=== PATIENT | male | born 1995 | race Caucasian/White ===

== ENCOUNTER 2017-08-04 23:26 | Emergency (ER) | payer MEDICAID, SELFPAY ==
[2017-08-04 23:26] VITALS: BP 141/89; PULSE 108; RESP 24; TEMP 37; O2SAT 96; BMI 32.5
[2017-08-04 23:43] LABS: Bacteria 0 SEEN /hpf (None Seen); Red Blood Cells-Urine 0 SEEN /hpf (0-5); Squamous Epithelial Cells - UA 0 SEEN /hpf (0-5); White Blood Cells 0 SEEN /hpf (0-5)
[2017-08-04 23:44] LABS: Color, Urine Amber (Yellow); Glucose, Dipstick Normal (Normal); Ketone-Dipstick 15 mg/dl (Negative); Leukocyte Esterase-Dipstick Negative /ul (Negative); Nitrite-Dipstick Positive (Negative); Occult Blood-Urine Negative /ul (Negative); Protein-Dipstick 15 mg/dl (Negative); Urine Clarity Sl. Cloudy (Clear); Urine Urobilinogen 8 mg/dl (Normal)
[2017-08-04 23:45] LABS: Urine Bilirubin Dipstick 6 mg/dL (Negative)
[2017-08-04 23:54] LABS: Mucous, Urine 3+ /hpf (<or=2+)
--- NOTE | 2017-08-05 00:36 | ED.DCSUM_ITS ---
- ER Visit Summary Date of Service: 08/05/17 Chief Complaint: Dysuria and hematuria History of Present Illness: The patient is a 21 M who reports getting frequent UTIs. Patient believes he has Crohn's disease which leads to UTIs. Patient states he normally just drinks a lot of cranberry juice. He developed some dysuria hematuria 4 days ago started drinking cranberry juice. Symptoms initially improved but then returned and worsened. He describes frequency and urgency as well as dysuria. He has not noted a fever. He has mild lower back pain. Patient denies penile discharge or possibility of STD. Physical Examination: Vital signs are unremarkable. Patient sitting upright in bed no acute distress. He is nontoxic appearing. Head neck examination is normal. Heart is regular rate and rhythm. Lung sounds are clear. Abdomen is soft with mild suprapubic tenderness. No guarding or rebound. Back examination was no CVA tenderness. Test Results: Urinalysis is positive for nitrites. 0 bacteria is noted. Emergency Department Course and Treatment: Patient has been taking over-the- counter Azo type medication. This may have skewed his urinalysis results. With patient having positive nitrites he will be treated with a course of Cipro. Urine culture will be sent. He requested referral for GI follow-up to determine whether or not he has Crohn's disease. He is given Dr. Montano's information. Treatment Plan: [] Disposition: Discharge Impression: Cystitis This note was generated with [employer] dictation software. It may contain incorrect words, spelling, and punctuation that were not noted in review of the chart prior to signing ED Disposition - Plan for ED Patient: Disposition: Home or Assisted Living Chief Complaint: Complaint Instructions: ED UTI Cystitis Male Prescriptions: Ciprofloxacin [Cipro] 500 mg PO BID #14 tablet Referrals: Michael Chris [Primary Care Provider] - Sarthak Montano MD [STAFF PHYSICIAN] -
[2017-08-05] MEDS: Ciprofloxacin 500 MG Tablet PO (01:15)
--- NOTE | 2017-08-05 23:27 | ED.DEP ---
ED Disposition - Plan for ED Patient: Disposition: Home or Assisted Living Chief Complaint: Complaint Instructions: ED UTI Cystitis Male Prescriptions: Ciprofloxacin [Cipro] 500 mg PO BID #14 tablet Ciprofloxacin [Cipro] 500 mg PO BID #14 tab Referrals: Michael Chris [Primary Care Provider] - Sarthak Montano MD [STAFF PHYSICIAN] - Additional Instructions: submitted electronically this evening as it was not received yesterday
== END 2017-08-05 01:18 | disposition home or self-care (01) ==
LOC: ED 08-05 00:46
PROVIDERS: Emergency Provider Emergency Medicine; Family Provider Family Medicine; PCP Family Medicine
DX: N30.91 Cystitis, unspecified with hematuria (principal); Z87.440 Personal history of urinary (tract) infections
CPT/HCPCS: 81001; 87086; 99283

== ENCOUNTER → 2019-03-26 07:44 | Outpatient (CLI) | payer MEDICAID, SELFPAY ==
--- NOTE | 2019-03-26 10:16 | PFTCOMP_ITS ---
COMPLETE PULMONARY FUNCTION TEST INTERPRETATION Brief HPI: Patient is a 23 year old male, currently under the care of Rukhsana Robb, who presents to [facility] for complete pulmonary function tests secondary to diagnosis of rule out asthma. Respiratory therapist reports good effort and reproducible results. Interpretation: Forced expiration spirometry shows no large airways obstructive ventilatory defect with an FEV1 of 86% predicted. There is no significant bronchodilator response by strict ATS criteria. Spirograms are of good quality and plateau normally. The respiratory flow volume loop shows flattening of the expiratory limb suggestive of a possible intrathoracic variable airway obstruction. Lung volumes by body plethysmography show a decreased total lung capacity at 5.14 L, 67% predicted. All other lung volumes are reduced symmetrically. Diffusion capacity by carbon monoxide is decreased at 70% predicted. The airway resistance is normal. No previous pulmonary function tests were available for review. Impression: Moderate restrictive ventilatory defect with a symmetric reduction diffusing capacity and findings suggestive of a possible variable intrathoracic airway obstruction. Consider CT scan of the chest with contrast if not completed previously for evaluation of mediastinal masses.
== END ==
PROVIDERS: Referring Provider Nurse Practitioner Family; Visit Provider Nurse Practitioner Family
DX: R05 Cough (principal)
CPT/HCPCS: 94060; 94726; 94729

== ENCOUNTER → 2019-04-11 16:03 | Outpatient (CLI) | payer MEDICAID, SELFPAY ==
--- NOTE | 2019-04-11 16:15 | CT_ITS ---
STUDY: CT CHEST WITH CONTRAST REASON FOR EXAM: Male, 23 years old. Shortness of breath RADIATION DOSAGE (If Supplied By Facility): DLP = ( 689.34 ) mGycm TECHNIQUE: Transaxial imaging was performed following intravenous administration of 100 mL ml of Isovue-300 contrast material. Coronal and sagittal reformatted images were created. Individualized dose optimization techniques were used for this CT. COMPARISON: None FINDINGS: There are no pulmonary infiltrates or pleural effusions. There are no pulmonary nodules or masses. There is no pneumothorax. The heart and pericardium are within normal limits. There is no thoracic lymphadenopathy. There is no evidence of thoracic aortic aneurysm. Images through the upper abdomen demonstrate no significant abnormality. There are no destructive osseous lesions. CT/Chest WITH Contrast IMPRESSION: Unremarkable contrast-enhanced CT of the chest. Electronically Signed: Sukhjinder Blas, at 20:10 EST Tel , Service support ,
== END ==
DX: R06.02 Shortness of breath (principal); R53.83 Other fatigue; R94.2 Abnormal results of pulmonary function studies
CPT/HCPCS: 71260; Q9967

== ENCOUNTER → 2019-05-20 10:02 | Outpatient (CLI) | payer MEDICAID, SELFPAY ==
--- NOTE | 2019-05-20 10:06 | ECHOD_ITS ---
Reason For Study: ABN PFT Procedure This was a 2D Doppler, Color Flow transthoracic echocardiogram. Exam performed in department. Left Ventricle Normal LV size. Left ventricular systolic function is normal. The estimated ejection fraction is 60 %. Normal diastology for age. No regional wall motion abnormalities noted. Right Ventricle Normal RV size. Normal systolic function. Atria Normal left atrium. Normal right atrium. Mitral Valve Normal mitral valve. Tricuspid Valve Normal tricuspid valve. Mild tricuspid valve insufficiency. Aortic Valve Normal aortic valve. Trisinus/trileaflet aortic valve. Pulmonic Valve Normal pulmonic valve. Great Vessels Normal aortic root. The pulmonary artery is normal size. Normal inferior vena cava. Pericardium/Pleural No pericardial effusion. MMode/2D Measurements & Calculations LVIDd: 5.5 cm IVSd: 1.0 cm Ao root diam: 3.1 cm LVIDs: 3.3 cm LVPWd: 0.95 cm RVDd: 3.5 cm FS: 40.0 % LAV(MOD-bp): 47.3 ml LA A4 area: 17.2 cm2 LA dimension(2D): 4.0 cm LAV(MOD-bp) Indexed: 20.0 ml/m2 LAV(MOD-sp2): 46.2 ml LAV(MOD-sp4): 48.0 ml RA A4 area: 12.9 cm2 Time Measurements MV dec time: 0.19 sec Doppler Measurements & Calculations MV E max suraj: 64.5 cm/sec Lat Peak E' Suraj: 13.2 cm/sec Med Peak E' Suraj: 8.8 cm/sec MV A max suraj: 47.9 cm/sec E/E' lat: 4.9 E/E' med: 7.3 MV E/A: 1.3 Ao V2 max: 110.6 cm/sec LV V1 max: 103.4 cm/sec PA V2 max: 119.6 cm/sec Ao max P.9 mmHg LV V1 max P.3 mmHg TR max suraj: 223.2 cm/sec TR max P.9 mmHg Interpretation Summary Normal LV size. Left ventricular systolic function is normal. The estimated ejection fraction is 60 %. Normal diastology for age. Ordering Physician: Josefina Dey Referring Physician: Josefina Dey Performed By: Scarlett Allan, CARLOS, RVT
== END ==
DX: R94.2 Abnormal results of pulmonary function studies (principal)
CPT/HCPCS: 93306

== ENCOUNTER 2019-05-27 20:43 | Emergency (ER) | payer MEDICAID, SELFPAY ==
[2019-05-27 20:44] VITALS: BP 131/107; PULSE 110; RESP 18; TEMP 36.6; O2SAT 97; BMI 34.2
[2019-05-27 21:16] VITALS: O2SAT 100
--- NOTE | 2019-05-27 21:38 | EKG12_ITS ---
Test Reason : DYSRHYTHMIA Blood Pressure : / mmHG Vent. Rate : 095 BPM Atrial Rate : 095 BPM P-R Int : 150 ms QRS Dur : 102 ms QT Int : 344 ms P-R-T Axes : 045 011 037 degrees QTc Int : 432 ms Normal sinus rhythm Normal ECG Confirmed by DON DAS [id number]), commissioning editor BRENNON AN ([id number]) on 05/31/2019 9:25:10 AM Referred By: Jimena Robb Confirmed By:DON DAS
--- NOTE | 2019-05-27 21:40 | RAD_ITS ---
STUDY: X-RAY CHEST REASON FOR EXAM: Male, 23 years old. SOB TECHNIQUE: Single frontal view of the chest. COMPARISON: None. FINDINGS: The lungs are clear and expanded. There is no demonstrated pleural abnormality. Normal size heart. Normal mediastinum and kasia. Normal visualized pulmonary arteries. Normal visualized aortic arch and descending thoracic aorta. Normal visualized thoracic spine. Normal visualized ribs, clavicles, and shoulders. There is no demonstrated abnormality of the visualized soft tissue structures of the upper abdomen. RAD/Chest 1 View (Portable) IMPRESSION: Normal x-ray examination of the chest. Electronically Signed: Vivek Brannon MD at 22:07 EST Tel , Service support ,
--- NOTE | 2019-05-27 21:46 | ED.RN ---
NO OLD EKG
[2019-05-27] MEDS: 0.9% Normal Saline 1,000 ML 999 ML IV (21:51)
[2019-05-27 21:53] LABS: Absolute Lymphocyte Count 1.78 X10^3/uL (0.83-4.51); Absolute Neutrophil Count 6.4 X10^3/uL (2.0-7.7); Basophil# 0.02 X10^3/uL; Basophil% 0.2 % (0-1); Eosinophil# 0.09 X10^3/uL; Hematocrit 46.7 % (40-54); Hemoglobin 16.5 g/dL (13.0-16.5); Lymphocyte # 1.78 X10^3/ul (4.0); Lymphocyte % 20.4 % (19-41); Mean Corp Hgb Conc 35.3 g/dL (32-36); Mean Corpuscular Hgb 30.1 pg (27.0-32.0); Mean Corpuscular Volume 85.1 fL (80-94); Monocyte# 0.46 X10^3/uL; Monocyte% 5.3 % (0-10); NRBC Flagged by Analyzer 0 % (0-5); Neutrophil # 6.35 X10^3/uL (2.7-7.7); Neutrophil % 72.9 % (47-70); Platelet Count 228 K/mm3 (150-450); RBC Distribution Width CV 12.2 % (11.6-14.6); RBC Distribution Width SD 37.3 fl (35.1-43.9); Red Blood Count 5.49 M/mm3 (4.6-6.2); White Blood Count 8.7 K/mm3 (4.4-11.0)
[2019-05-27 22:19] LABS: Anion Gap 9 (5-15); BUN 10 mg/dL (7-18); BUN/Creat Ratio 8.2 RATIO (10-20); Calcium,Total 9.6 mg/dL (8.5-10.1); Chloride 108 mmol/L (98-107); Creatinine, Serum 1.22 mg/dL (0.70-1.30); EST Glomerular Filtration Rate 77 mL/min (>60); Est Glom Filt Rate - Afr Amer 93 mL/min (>60); Estimated Creatinine Clearance 102.48 ml/min; Glucose 85 mg/dL (74-106); Potassium 3.9 mmol/L (3.5-5.1); Sodium Level 140 mmol/L (136-145)
--- NOTE | 2019-05-27 22:36 | ED.DCSUM_ITS ---
- ER Visit Summary Date of Service: 05/27/19 Chief Complaint: Shortness of breath History of Present Illness: The patient is a 23 M presenting with shortness of breath x3 months. Patient states that he has been seen multiple times by his primary care physician. He is scheduled to see pulmonology this week. He states tonight he felt increasing shortness of breath along with dizziness. He had no syncope. He has chest pain which has also been ongoing for the past 3 months. He has been using albuterol as needed. He is a previous smoker. No other complaints. Physical Examination: Vitals are stable. Patient is afebrile. Alert no acute distress. HEENT exam is unremarkable. Neck is supple. Lungs are clear and equal bilaterally. Heart is regular rate and rhythm. Abdomen is soft nontender nondistended. Extremities are unremarkable. Skin is warm and dry. No focal neurologic deficit. Remainder of exam is unremarkable. Emergency Department Course and Treatment: EKG is sinus rate of 95 with no acute ischemic changes. Chest x-ray shows no acute process. CBC, chemistries unremarkable. Troponin is negative. D-dimer negative. On reevaluation, patient is resting comfortably. He is given albuterol with spacer. Advised to follow-up with pulmonology as scheduled. Advised return to ED for worsening complaints. Disposition: Discharge home Impression: Dyspnea This note was generated with [employer] dictation software. It may contain incorrect words, spelling, and punctuation that were not noted in review of the chart prior to signing ED Disposition - Plan for ED Patient: Referrals: Jimena Robb NP-C [Primary Care Provider] -
[2019-05-27 22:57] LABS: D-Dimer Quantitative (DVT/PE) <= 0.27 FEU/ug/m (0.27-0.49)
--- NOTE | 2019-05-27 23:17 | DCINST.ED_ITS ---
ED Disposition - Plan for ED Patient: Instructions: ED Dyspnea Referrals: Jimena Robb, SHINGLE GRADER-C [Primary Care Provider] -
--- NOTE | 2019-05-27 23:17 | ED.DEP ---
ED Disposition - Plan for ED Patient: Instructions: ED Dyspnea Referrals: Jimena Robb, QUALITY NURSE-C [Primary Care Provider] -
[2019-05-27 23:30] VITALS: BP 134/79; PULSE 87; RESP 25; O2SAT 95
[2019-05-27 23:32] VITALS: BP 134/79; PULSE 95; RESP 25; O2SAT 95
== END 2019-05-27 23:37 | disposition home or self-care (01) ==
PROVIDERS: Emergency Provider Emergency Medicine; PCP Nurse Practitioner Family; Referring Provider Nurse Practitioner Family
DX: R06.00 Dyspnea, unspecified (principal); Z87.891 Personal history of nicotine dependence
CPT/HCPCS: 36415; 71045; 80048; 84484; 85025; 85379; 93005; 96360; 99285; J7030; A4216

== ENCOUNTER → 2019-06-14 | Outpatient (CLI) | payer MEDICAID, SELFPAY ==
[2019-05-29 10:41] VITALS: BMI 35.4
[2019-06-14 09:00] VITALS: PULSE 106; PULSE 107; PULSE 109; PULSE 111; PULSE 113; PULSE 93; PULSE 96; O2SAT 95; O2SAT 96; O2SAT 98
--- NOTE | 2019-06-14 12:50 | PCM.PSN.6M ---
PSN 6 Minute Walk Test - 6 Minute Walk Test 6 Minute Walk Test: 6 Minute Walk Test PSN:6-Minute Walk Test Start: 06/14/19 09:35 Freq: Status: Active Protocol: RESP.6MINW Document 06/14/19 09:00 HJ (Rec: 06/14/19 09:43 HJ [id number]) 6 Minute Walk Test Date Performed 06/14/19 Time Performed 09:00 Height 6 ft Weight: 117.934 kg Weight in Pounds 260.[address]: Sadi Plasencia FIO2 (% Oxygen) 21 Assistive device used: None Post-test Oxygen Delivery Method Room Air Pulse Ox (%) 98 Pulse Rate (60-100 beats/min) 96 Dyspnea Fredy Scale (0-10) 4 Exertion Fredy Scale (6-20) 8 6th minute Oxygen Delivery Method Room Air Pulse Ox (%) 95 Pulse Rate (60-100 beats/min) 113 H 5th minute Oxygen Delivery Method Room Air Pulse Ox (%) 96 Pulse Rate (60-100 beats/min) 111 H 4th minute Oxygen Delivery Method Room Air Pulse Ox (%) 96 Pulse Rate (60-100 beats/min) 106 H 3rd minute Oxygen Delivery Method Room Air Pulse Ox (%) 96 Pulse Rate (60-100 beats/min) 111 H 2nd minute Oxygen Delivery Method Room Air Pulse Ox (%) 95 Pulse Rate (60-100 beats/min) 109 H 1st minute Oxygen Delivery Method Room Air Pulse Ox (%) 96 Pulse Rate (60-100 beats/min) 107 H Pre-test Oxygen Delivery Method Room Air Pulse Ox (%) 98 Pulse Rate (60-100 beats/min) 93 Dyspnea Fredy Scale (0-10) 0 Exertion Fredy Scale (6-20) 6 Full Laps Walked 23 Document 06/14/19 10:42 SFENTON (Rec: 06/14/19 10:42 SFENTON [id number]) 6 Minute Walk Test Full Laps Walked 23 Partial Lap, Number of Tiles Walked 0 Total Distance Walked (ft) 1357 - Interpretation Interpretation: The patient was able to ambulate 1357 feet over the course of 6 minutes on room air with no assistive devices or breaks. The patient experienced no significant desaturation, but did have tachycardia up to 113 bpm. These findings are consistent with deconditioning. - Recommendations Recommendations: No supplemental oxygen is indicated at this time
== END | disposition home or self-care (01) ==
LOC: PSN 09:01
PROVIDERS: Referring Provider Internal Medicine Critical Care Medicine; Visit Provider Internal Medicine Critical Care Medicine
DX: R94.2 Abnormal results of pulmonary function studies (principal)
CPT/HCPCS: 94618

== ENCOUNTER → 2019-07-26 | Outpatient (CLI) | payer MEDICAID, SELFPAY ==
[2019-06-19 12:43] VITALS: BMI 36.3
== END | disposition home or self-care (01) ==
LOC: PSN 13:00
PROVIDERS: Referring Provider Internal Medicine Cardiovascular Disease; Visit Provider Internal Medicine Cardiovascular Disease
DX: R00.2 Palpitations (principal)
CPT/HCPCS: 93225; 93226

== ENCOUNTER → 2019-09-23 | Outpatient (CLI) | payer MEDICAID, SELFPAY ==
[2019-06-19 12:43] VITALS: BMI 36.3
--- NOTE | 2019-09-23 13:00 | SP.MBSS_ITS ---
PRIMARY / SECONDARY DIAGNOSIS: dysphagia (R13.10) CURRENT DIET (SOLIDS): regular textures (IDDSI: 7) CURRENT DIET (LIQUIDS): thin liquid diets (IDDSI: 0) DENTITION: natural upper / lower dentition MENTAL STATUS: intact RESPIRATORY STATUS: O2 via room air CURRENT FUNCTIONAL AMBULATION CATEGORY (FAC): 5 (ambulator- independent) REASON FOR REFERRAL: The Patient is a pleasant 23 year old male pending anticipated transition referred for a modified barium swallow (MBS) study to objectively assess the Patients oropharyngeal swallow function under fluoroscopy secondary to reported intermittent post prandial globus sensation with occasional return / emesis (~1-2x week), though this has somewhat improved with a self-adjustment in medication administration (states he doubled his Omeprazole, intends to discuss with her physician). MEDICAL HISTORY: Shortness of breath, former smoker PREVIOUS MODIFIED BARIUM SWALLOW STUDY RESULTS: None ADDITIONAL OBJECTIVE ASSESSMENT RESULTS: 06/14/2019 pulmonary exercise test revealed findings consistent with deconditioning. 03/26/2019 pulmonary functions test revealed a moderate restrictive ventilatory defect with a symmetric reduction diffusing capacity and findings suggestive of a possible variable intrathoracic airway obstruction. ASSESSMENT PARAMETERS: The Patient participated in a Modified Barium Swallow (MBS) study on 09/23/2019. This study was recorded in the lateral view and images were sent to PACs for storage. Scoring was completed through each trial using the 8- point Penetration-Aspiration Scale (PAS) and summarized via the Modified Barium Swallow Impairment Profile (MBSImP) and the Bolus Residue Scale (BRS), with severity scoring through the Dysphagia Severity Rating Scale (DSRS) and the Dysphagia Classification Scale (DCS), and recommended diet textures through the International Dysphagia Diet Standardisation Initiative (IDDSI) RESULTS OF THE EVALUATION: The Patient presents with mastication and deglutition abilities found to be grossly within normal limits (DSRS: 0) OBJECTIVE ASSESSMENT OF SWALLOW FUNCTION (QUANTITATIVE ? PER TRIAL): PENETRATION / ASPIRATION SCALE (BERGMAN): 1 = does not enter airway 2 = enters airway/above vocal folds/ejected 3 = enters airway/above vocal folds/not ejected 4 = enters airway/contacts vocal folds/ejected 5 = enters airway/contacts vocal folds/not ejected 6 = enters airway/below vocal folds/ejected 7 = enters airway/below vocal folds/not ejected despite effort 8 = enters airway/below vocal folds/no effort PENETRATION / ASPIRATION SCALE (SCORE): Thin liquid - 5 mL tsp.: 1 Thin liquids via cup (single sip): 1 Thin liquids via cup (single sip): 1 Thin liquids via cup (single sip): 1 Thin liquids via cup (sequential swallows): 1 Pudding via spoon: 1 Regular textured cookie: 1 Thin liquids via straw: 1 OBJECTIVE ASSESSMENT OF SWALLOW FUNCTION (QUANTITATIVE ? AGGREGATE): MODIFIED BARIUM SWALLOW IMPAIRMENT PROFILE (MBSImP) LABIAL SEAL: 0 (of 4) no labial escape TONGUE CONTROL: 0 (of 3) cohesive bolus BOLUS PREPARATION / MASTICATION: 0 (of 3) timely and efficient BOLUS TRANSPORT / LINGUAL MOTION: 0 (of 4) brisk tongue motion ORAL RESIDUE: 0 (of 4) complete clearance INITIATION OF PHARYNGEAL SWALLOW: 0 (of 4) posterior angle of ramus SOFT PALATE ELEVATION: 0 (of 4) no bolus between soft palate & pharyngeal wall LARYNGEAL ELEVATION: 0 (of 3) complete superior movement / approximation ANTERIOR HYOID EXCURSION: 0 (of 2) complete movement EPIGLOTTIC MOVEMENT: 0 (of 2) complete inversion LARYNGEAL VESTIBULE CLOSURE: 0 (of 2) complete closure PHARYNGEAL STRIPPING WAVE: 0 (of 2) present / complete PE SEGMENT OPENIN (of 3) complete distension / duration; no obstruction TONGUE BASE RETRACTION: 0 (of 4) no contrast PHARYNGEAL RESIDUE: 1 (of 4) trace residue ESOPHAGEAL BOLUS CLEARANCE: 0 (of 4) complete clearance; esophageal coating BOLUS RESIDUE SCALE (BRS): BRS SCORE: 1 (of 6) BRS SCORE DESCRIPTION: no residue OBJECTIVE ASSESSMENT OF SWALLOW FUNCTION (SEVERITY GRADING): DYSPHAGIA SEVERITY RATING SCALE (DSRS): DSRS CLASSIFICATION: 0 (within normal limits - 0% impairment) DSRS CLASSIFICATION CHARACTERISTICS: normal swallowing mechanism. DYSPHAGIA CLASSIFICATION SCALE (DCS): DCS CLASSIFICATION: D0 (normal) DCS CLASSIFICATION CHARACTERISTICS: without stasis or food consistency restrictions OBJECTIVE ASSESSMENT OF SWALLOW FUNCTION (QUALITATIVE): ORAL PREPARATORY PHASE: sufficient mastication rate and quality; sufficient anterior oral containment during oral manipulation; preserved management of breathing / bolus formation without disrupted E ? S ? E pattern ORAL TRANSITIONAL PHASE: no presence of transitional incompetence with sufficient bolus transportation; no lingual discoordination (no tremor / undulations); no bolus consolidation impairments with sufficient oral clearance; sufficient oral containment across textures; no presence of premature posterior bolus loss PHARYNGEAL PHASE: no signs of pharyngeal dyssynchrony; appropriate hyolaryngeal excursion and laryngeal vestibule closure / pressure; appropriate pharyngeal motility; no signs of velopharyngeal impairments. . ESOPHAGEAL PHASE: initially discussed possible (albeit low) esophageal based abnormalities, though no obvious esophageal phase abnormalities observed upon review; however further investigation may be warranted if symptomology persists without a causal factor identified. INTERVENTION RECOMMENDATIONS AND CONSIDERATIONS: The Patient did discuss some of her pulmonology based issues with the clinician, and at one point described occasional issues with inspiration vs. exhalation, along with anxiety and depression struggles; if symptom association warrants, she may benefit from further workup regarding paradoxical vocal fold dysfunction, though there is little to suggest this based on our conversations alone. INTERVENTION RECOMMENDATIONS AND CONSIDERATIONS: No further speech-language pathology based intervention warranted targeting dysphagia. POST ASSESSMENT EDUCATION: The results and recommendations were discussed with the Patient immediately following MBS completion, with the Patient verbalizing understanding and agreement with all recommendations and education provided. DIET TEXTURE RECOMMENDATIONS: Will recommend a regular textured (IDDSI: 7), thin liquid diet (IDDSI: 0) diet RECOMMENDED COMPENSATORY STRATEGIES: Seated upright at 90 degrees during PO intake, remain upright for 30-60 minutes post meal (GERD precaution). IMAGE COUNT: [id number] Wilfredo Boston M.A., NATHANIEL-DENTOFACIAL ORTHOPEDICS DENTIST, CBIS MBSImP Certified, LSVT Certified [facility] Speech-Language Pathology Department Email: [email or web address]
== END | disposition home or self-care (01) ==
LOC: RAD 12:56
DX: R13.10 Dysphagia, unspecified (principal)
CPT/HCPCS: 74230; 92611

== ENCOUNTER 2019-11-15 13:00 | Outpatient (RCR) | payer MEDICAID, SELFPAY ==
[2019-10-10 14:06] VITALS: BMI 35.4
--- NOTE | 2019-10-18 13:10 | SOAP_ITS ---
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 She reports persisting issues with breathing over the past few years that have gradually increased, occurring intermittently throughout the week, with episodes lasting anywhere from 2-5 minutes up to a few hours, typically recurring throughout the day when present. She reports biphasic breathing difficulties, though does note that it is particularly difficult breathing in during episodes. She reports persisting globus sensation with substernal tightness, in addition to intermittent nausea that occurs with and without breathing symptomology. She also reports frequently waking with a noticeable hoarse voice, with her vocal quality returning to normal after a few hours, with no changes in subjective reflux significance after recent medication adjustments. She reports a trigger effect with exercises / physical exertion, to the point that she has been out of work over the past few months after an incident that lead to her nearly passing out (she unloads delivery trucks in warehouse) do the significance of her breathing issues. She further reports some trigger effects associated with strong odors in addition to stress. She reports a protracted struggle with anxiety in addition to depression, though reports that she has been managing this well through the use of marijuana (~2-3x per week). She does describe herself as rather competitive / type A personality. She has not noticed any effect from environmental factors (weather / temperature), though does report some possible environmental allergies (uncertain). She has yet to proceed with the transition process, with no associated effect from treatment / intervention possible. MEDICAL HISTORY: Bipolar disorder, shortness of breath, anxiety and depression, gastroesophageal reflux disease, former smoker; possible Crohn?s disease. MEDICATIONS: Cetirizine 10mg Ondansetron HCl 4 mg Famotidine 20 mg Nicotine 21mg/24 hour transdermal Omeprazole 20mg Montelukast 10 mg Albuterol sulfate HFA 90 mcg Fluticasone propionate 50 mcg ADDITIONAL OBJECTIVE ASSESSMENT RESULTS: 06/14/2019 pulmonary exercise test revealed no significant desaturation; tachycardia up to 113 bpm; findings are consistent with deconditioning. 03/26/2019 pulmonary functions test revealed moderate restrictive ventilatory defect with a symmetric reduction diffusing capacity and findings suggestive of a possible variable intrathoracic airway obstruction. 09/23/2019 MBS revealed mastication and deglutition abilities found to be grossly within normal limits (DSRS: 0) RESULTS OF THE EVALUATION: The patient presents with signs and symptoms similar in nature to paradoxical vocal cord dysfunction (J38.3). FUNCTIONAL STATUS ASSESSMENT RESULTS: PATIENT HEALTH QUESTIONNAIRE (PHQ-9) PHQ OVERALL SCORE: 11 PHQ INTERPRETATION: moderate depression risk GENERALIZED ANXIETY DISORDER 7-ITEM (MARY-7) SCALE MARY-7 OVERALL SCORE: 11 MARY-7 INTERPRETATION: moderate risk of an anxiety disorder FUNCTIONAL AMBULATION CATEGORY (FAC): FAC SCORE: 5 FAC DESCRIPTION: ambulator- independent CLINICAL ASSESSMENT OF VOCAL CORD FUNCTIONING (QUANTITATIVE): REFLUX SYMPTOM INDEX (RSI) RSI TOTAL SCORE: 29 RSI INDICATIONS: a score of >13 may indicate significant reflux VOICE HANDICAP INDEX (VHI): FUNCTIONAL: 0 PHYSICAL: 7 EMOTIONAL: 0 VHI TOTAL SCORE: 7 VHI SEVERITY LEVEL: mild CONSENSUS AUDITORY-PERCEPTUAL EVALUATION OF VOICE (CAPE-V): OVERALL SEVERITY: 5/100 ROUGHNESS: 5/100 BREATHINESS: 10/100 STRAIN: 0/100 PITCH: 5/100 LOUDNESS: 10/100 VOCAL CORD DYSFUNCTION? QUESTIONNAIRE (VCD-Q): VCD-Q TOTAL SCORE: 38/60 DESCRIPTION OF RESULTS: a score of > 12 indicates a possible vocal cord dysfunction CLINICAL ASSESSMENT OF VOCAL CORD FUNCTION (QUALITATIVE): TYPE OF STRIDOR / BREATHING DIFFICULTY INSPIRATORY: yes EXPIRATORY: yes BIPHASIC (INSPIRATORY & EXPIRATORY): yes PATTERN OF STRIDOR / BREATHING DIFFICULTY CONTINUOUS (ALL OF THE TIME) DAY & NIGHT: no CONTINUOUS DAYTIME ONLY NOT AT NIGHT: no INTERMITTENT ATTACKS LASTING MINUTES TO HOURS: yes INTERMITTENT ATTACKS LASTING HOURS TO DAYS: yes INTERMITTENT ATTACKS LASTING SEVERAL DAYS: no TRIGGERS (TIMING / ASSOCIATED ACTIVITIES) AFTER MEALS (EATING / DRINKING): no AWAKENS FROM SLEEP: yes ASSOCIATED WITH EXERCISE: yes ASSOCIATED WITH STRESS: yes ASSOCIATED WITH CERTAIN ODORS: yes ASSOCIATED SYMPTOMS HOARSENESS: no CHEST TIGHTNESS: yes (with and without) COUGH: no DYSPHAGIA: yes (with and without) GLOBUS SENSATION: yes (with and without) HEARTBURN: yes (with and without) REGURGITATION: yes (with and without) THROAT TIGHTNESS: yes (with and without) SPECIFIC RELEVANT PAST MEDICAL HISTORY ALLERGIES / ASTHMA: yes BRAIN TUMOR: no HALDOL OR OTHER PHENOTHIAZINE: no HEAD INJURY: yes LARYNGEAL OR NON-LARYNGEAL DYSTONIA: no LPR / GERD: yes PSYCHIATRIC DISORDER: yes STROKE: no VOCAL FOLD PARALYSIS: no GENERAL EXAMINATION / OBSERVATIONS BREATHY AND / OR HOARSE VOCAL QUALITY: no INSPIRATORY / BIPHASIC STRIDOR DURING RESPIRATION / SPEECH: no REDUCED BREATH SUPPORT OR CONTROL: n MUSCULOSKELETAL TENSION OF THE HEAD AND NECK: yes (slight) THROAT TIGHTNESS / CHOKING / BREATHING PROBLEM DURING ALTERNATING/ i / - SNIFF: no RAPID IN-AND-OUT BREATHING: yes COUGH / THROAT CLEAR / CHUCKLE, THEN DEEP BREATH: no RAPID AND LOUD COUNTING: yes SMELLING A STRONG PERFUME / CHEMICAL: yes RUNNING IN PLACE: yes RECOMMENDATIONS FOR INTERVENTION: Recommend continued skilled speech-language intervention 1x per week for upwards of 10 weeks with a licensed speech-language pathologist targeting training and implementation of recommended compensatory respiratory strategies and laryngeal control exercises to reduce / eliminate the effects of paradoxical vocal fold dysfunction. FUNCTIONAL OUTCOMES: OUTCOME 1: the Patient with independently demonstrate and utilize recommended compensatory breathing techniques during both structured therapeutic activities and during acute breathing episodes to facilitate improved airway functioning and decreased anxiety at the independent level, across 2 out of 3 sessions. OUTCOME 2: goal adjustment as needed Wilfredo Boston M.A., CCC-CHANGE OF ADDRESS CLERK, CBIS MBSImP Certified, LSVT Certified [facility] Speech-Language Pathology Department Email: [email or web address]
--- NOTE | 2020-04-03 12:58 | DS_ITS ---
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 The patient participated in intervention sessions targeting training and implementation of recommended compensatory respiratory strategies and laryngeal control exercises to reduce / eliminate the effects of paradoxical vocal fold dysfunction. While it was difficult to identify a clear pattern through her symptomology tracker, she is able to manage and ameliorate symptomology associated with exercise induced episodes with a volitional yawn on all occasions. the patient was placed on a therapeutic hold pending a re-occurrence of unchecked PVCD symptomology, though no further sessions were scheduled to date. We will discharge the patient from the skilled speech-language pathology caseload at this time, though would gladly re-initiate intervention as needed moving forward.
== END 2019-11-15 17:00 | disposition home or self-care (01) ==
LOC: SP 13:00
PROVIDERS: PCP Nurse Practitioner Family; Referring Provider Otolaryngology; Visit Provider Otolaryngology
DX: J38.3 Other diseases of vocal cords (principal)
CPT/HCPCS: 92507

== ENCOUNTER → 2019-11-29 12:41 | Outpatient (CLI) | payer MEDICAID, SELFPAY ==
[2019-10-10 14:06] VITALS: BMI 35.4
--- NOTE | 2019-11-29 12:44 | CT_ITS ---
STUDY: CT ABDOMEN AND PELVIS WITH CONTRAST REASON FOR EXAM: Male, 24 years old. CHRON''S DISEASE. LOWER ABD PAIN X 4 YEARS, DIARRHEA, NAUSEA. RADIATION DOSAGE (If Supplied By Facility): CTDIvol = ( 23.57 ) mGy, DLP = ( 2999.04 ) mGycm TECHNIQUE: Transaxial images were obtained from the dome of the diaphragm to the symphysis pubis with oral contrast. Oral and amp; IV Breeza and amp; 100mL Isovue-370 was administered. Sagittal and coronal images were reconstructed. Individualized dose optimization techniques were used for this CT. COMPARISON: Comparison is made with prior examination dated 03/24/2014. FINDINGS: The visualized lung bases are unremarkable. The visualized portions of the heart are within normal limits. There is decreased attenuation of the liver consistent with steatosis. Normal gallbladder and extrahepatic biliary system. Normal spleen. Normal pancreas. Normal bilateral adrenal glands. Normal right kidney. Normal left kidney. There is a small hiatal hernia. Normal small intestine. There are scattered colonic diverticula consistent with diverticulosis. The appendix is visualized and appears normal. Multiple lymph nodes are seen in the mesenteric fat in the right lower quadrant in keeping with mesenteric lymphadenitis. Normal abdominal aorta. Normal inferior vena cava. Normal retroperitoneum. Normal urinary bladder. Normal abdominal wall. Normal osseous structures. CT/Abdomen/Pelvis WITH Contrast IMPRESSION: Scattered colonic diverticula. Fatty infiltration of the liver. Mesenteric adenitis in the right lower quadrant. Electronically Signed: Anjel Carbajal, at 14:01 EDT , Service support ,
== END ==
DX: R10.31 Right lower quadrant pain (principal)
CPT/HCPCS: 74177; Q9967; A4216

== ENCOUNTER → 2020-03-18 17:25 | Outpatient (CLI) | payer MEDICAID, SELFPAY ==
[2020-03-10 08:12] VITALS: BMI 36.2
--- NOTE | 2020-03-18 17:26 | MRI_ITS ---
HISTORY: HEADACHES, H/O 7 CONCUSSIONS, SHORT TERM MEMORY LOSS, BODY TWITCHING TECHNIQUE: Routine brain MR protocol was performed without and with gadolinium 19 cc of the Dotarem. COMPARISON: None FINDINGS: # of images incl. paperwork: 342 Brain volume is normal. No acute stroke is present. Paranasal sinuses are clear. There are no masses, herniations, nor deviations. Orbits and globes are normal. The pituitary and sella turcica are not enlarged. Flow is present within major central intracranial arteries. Post gadolinium images failed to demonstrate any pathologic enhancing lesions or arterial venous malformations. MRI/Brain W/WO Contrast IMPRESSION: Normal. at 2114 Reported and signed by: Tyler Hilton MD Electronically Signed: Tyler Hilton MD at 21:13 EST Tel , Service support ,
== END ==
PROVIDERS: Referring Provider Psychiatry & Neurology Neurology; Visit Provider Psychiatry & Neurology Neurology
DX: G43.909 Migraine, unspecified, not intractable, without status migrainosus (principal)
CPT/HCPCS: 70553; A9575

== ENCOUNTER → 2020-05-13 | Outpatient (CLI) | payer MEDICAID, SELFPAY ==
[2020-03-10 08:12] VITALS: BMI 36.2
[2020-05-13 15:18] LABS: Hematocrit 48.5 % (40-54); Mean Corp Hgb Conc 35.1 g/dL (32-36); Mean Corpuscular Hgb 29.6 pg (27.0-32.0); Mean Corpuscular Volume 84.5 fL (80-94); Mean Platelet Vol. 11.3 fl (6.2-12.0); Platelet Count 206 K/mm3 (150-450); RBC Distribution Width CV 12.3 % (11.6-14.6); Red Blood Count 5.74 M/mm3 (4.6-6.2); White Blood Count 6.2 K/mm3 (4.4-11.0)
[2020-05-13 16:00] LABS: Vitamin B12 379 pg/mL (211-911)
[2020-05-13 16:19] LABS: ALB/GLOB Ratio 1.3 RATIO (0.9-2.4); AST(SGOT) 27 U/L (15-37); Alanine Aminotransfer ALT/SGPT 58 U/L (16-61); Albumin, Serum 4.4 g/dL (3.2-5.0); Alkaline Phosphatase 86 U/L (45-117); Anion Gap 5 (5-15); BUN 12 mg/dL (7-18); BUN/Creat Ratio 10.3 RATIO (10-20); Calcium,Total 9.1 mg/dL (8.5-10.1); Chloride 102 mmol/L (98-107); Creatinine, Serum 1.16 mg/dL (0.70-1.30); EST Glomerular Filtration Rate 81 mL/min (>60); Est Glom Filt Rate - Afr Amer 98 mL/min (>60); Globulin 3.5 g/dL (2.2-4.2); Glucose 82 mg/dL (74-106); Potassium 3.3 mmol/L (3.5-5.1); Protein, Total 7.9 g/dL (6.4-8.2); Sodium Level 136 mmol/L (136-145); Thyroid Stim Hormone (TSH) 1.34 uIU/mL (0.358-3.74)
== END | disposition home or self-care (01) ==
PROVIDERS: Referring Provider Psychiatry & Neurology Neurology; Visit Provider Psychiatry & Neurology Neurology
DX: G43.909 Migraine, unspecified, not intractable, without status migrainosus (principal); R41.3 Other amnesia; R53.83 Other fatigue
CPT/HCPCS: 36415; 80053; 82607; 82746; 84443; 85027

== ENCOUNTER → 2020-07-13 15:21 | Outpatient (CLI) | payer MEDICAID, SELFPAY ==
[2020-03-10 08:12] VITALS: BMI 36.2
[2020-07-13 16:21] LABS: Potassium 4.3 mmol/L (3.5-5.1)
== END ==
PROVIDERS: Visit Provider Nurse Practitioner Family
DX: E87.6 Hypokalemia (principal)
CPT/HCPCS: 36415; 84132